=== PATIENT | female | born 1985 | race American Indian/Alaskan Native ===

== ENCOUNTER 2017-05-31 12:32 | Emergency (ER) | payer MEDICAID ==
[2017-05-31] MEDS ORDERED: NORMODYNE IV ONE (13:01)
[2017-05-31 13:24] LABS: Basophils % (Auto) 0.3 % (0.0-1.8); Eosinophils % (Auto) 0.7 % (0.0-4.3); Hematocrit 34.6 % (30.3-42.9); Mean Corpuscular HGB Conc 35 % (30-34); Mean Corpuscular Hemoglobin 29 pg (28-32); Mean Corpuscular Volume 84 fl (79-97); Platelet Count 230 K/mm3 (140-440); Red Blood Count 4.12 M/mm3 (3.65-5.03); Red Cell Distribution Width 17.2 % (13.2-15.2)
[2017-05-31 13:38] LABS: INR 0.87 (0.87-1.13); Partial Thromboplastin Time 30.3 Sec. (24.2-36.6)
--- NOTE | 2017-05-31 14:02 | Emergency Department Report ---
HPI - General Chief Complaint: Nosebleed Time Seen by Provider: 05/31/17 12:56 - HPI HPI: This is a 31-year-old female who presents to the emergency department with a complaint of a nosebleed that started about 30 minutes prior to presentation while she was at lunch. There was a large amount of bleeding and some clots. She denies any trauma to the nose. Patient is 37 weeks but otherwise denies any past medical history. She held pressure for a little while but did not have any improvement. She denies any shortness of breath, fever, nausea, vomiting. She is not on any blood thinners or daily aspirin. ED Past Medical Hx - Past Medical History Previous Medical History?: No Hx Hypertension: No - Surgical History Past Surgical History?: No - Social History Smoking Status: Never Smoker Substance Use Type: None - Medications Home Medications: Home Medications Medication Instructions Recorded Confirmed Last Taken Type Vit-Fe Fumar-FA [ 1 tab PO QDAY 07/05/15 05/31/17 07/05/15 History Vitamin] ED Review of Systems ROS: Stated complaint: NOSE BLEED Other details as noted in HPI Comment: All other systems reviewed and negative Constitutional: denies: chills, fever Eyes: denies: eye pain, eye discharge, vision change ENT: epistaxis Respiratory: denies: cough, shortness of breath, wheezing Cardiovascular: denies: chest pain, palpitations Gastrointestinal: denies: abdominal pain, nausea, diarrhea Genitourinary: denies: urgency, dysuria, discharge Musculoskeletal: denies: back pain, joint swelling, arthralgia Skin: denies: rash, lesions Neurological: denies: headache, weakness, paresthesias Physical Exam - Physical Exam Vital Signs: Vital Signs 05/31/17 05/31/17 05/31/17 12:48 12:52 13:03 Temperature 98.2 F Pulse Rate 107 H Respiratory 17 17 Rate Blood Pressure 154/83 O2 Sat by Pulse 99 99 98 Oximetry Physical Exam: GENERAL: The patient is well-developed well-nourished. HENT: Normocephalic. Atraumatic. Patient has moist mucous membranes. There is a moderate amount of red blood seen in the right nasal passage with some clots. EYES: Extraocular motions are intact. Pupils equal reactive to light bilaterally. NECK: Supple. Trachea is midline. CHEST/LUNGS: Clear to auscultation. There is no respiratory distress noted. HEART/CARDIOVASCULAR: Regular. There is no tachycardia. There is no gallop rub or murmur. ABDOMEN: Abdomen is soft, nontender. Patient has normal bowel sounds. Patient has some abdominal distention secondary to advanced gestation . SKIN: Skin is warm and dry.. NEURO: The patient is awake, alert, and oriented. The patient is cooperative. The patient has no focal neurologic deficits. The patient has normal speech. MUSCULOSKELETAL: There is no tenderness or deformity. There is no limitation range of motion. There is no evidence of acute injury. ED Course Vital Signs 05/31/17 05/31/17 05/31/17 12:48 12:52 13:03 Temperature 98.2 F Pulse Rate 107 H Respiratory 17 17 Rate Blood Pressure 154/83 O2 Sat by Pulse 99 99 98 Oximetry ED Medical Decision Making - Lab Data Result diagrams: 05/31/17 13:07 - Medical Decision Making 31-year-old female presents to the emergency department with some acute right- sided epistaxis that occurred just prior to presentation. When she first came in and there was a moderate amount of bleeding coming from the right nasal passage and some clots. I had her hold pressure with her head straight and level for 20-30 straight minutes. She also received an IV was given a very small dose of labetalol for some mildly elevated blood pressure. It appears that this combination worked as the bleeding stopped and eventually the clots came out without any further bleeding or hemorrhage and the patient says that she had open nasal passages without any further epistaxis. She'll be discharged home to follow up with her primary care physician but will return to the ER with any worsening of her symptoms or any acute distress. Critical Care Time: No Critical care attestation.: If time is entered above; I have spent that time in minutes in the direct care of this critically ill patient, excluding procedure time. ED Disposition Clinical Impression: Epistaxis Disposition: DC-01 TO HOME OR SELFCARE Is pt being admited?: No Condition: Good Instructions: Epistaxis (ED) Additional Instructions: If the nosebleed restarts, hold pressure for 20 minutes with your head straight and level. If it does not stop bleeding after this, you may need to return to the emergency department. Try not to blow your nose or sneeze if possible. Referrals: PRIMARY CARE, [Primary Care Provider] - [facility] Time of Disposition: 14:01
[2017-05-31 14:09] VITALS: BP 146/83
== END 2017-05-31 14:11 | disposition home or self-care (01) ==
LOC: ED 12:32
DX: R04.0 Epistaxis (principal)
CPT/HCPCS: 36415; 85025; 85610; 85730; 99283